=== PATIENT | male | born 1995 | race Hispanic/Latino ===

== ENCOUNTER 2017-04-29 03:01 | Emergency (ER) | payer BC ==
[2017-04-29 03:07] VITALS: BP 132/73; PULSE 59; RESP 14; TEMP 98; O2SAT 97
[2017-04-29] MEDS ORDERED: Alum-Mag Hydrox-Simethicone Susp (30 mL) PO STA (03:16)
--- NOTE | 2017-04-29 03:17 | ED PDOC ---
HPI: Abdomen Time Seen by Provider: 04/29/17 03:06 Chief Complaint (Nursing): Abdominal Pain Chief Complaint (Provider): Abdominal Pain History Per: Patient Additional Complaint(s): 21 yo male, no PMH, presents to ED for evaluation of acute epigastric abdominal pain that started 52 minutes ago after eating hummus. Past Medical History Reviewed: Nursing Documentation, Vital Signs Vital Signs: Last Vital Signs Temp 98 F 04/29/17 03:03 Pulse 59 L 04/29/17 03:03 Resp 14 04/29/17 03:03 BP 132/73 04/29/17 03:03 Pulse Ox 97 04/29/17 03:17 - Medical History PMH: Asthma - Surgical History Surgical History: No Surg Hx - Family History Family History: States: No Known Family Hx - Living Arrangements Living Arrangements: With Friends/Others - Social History Current smoker - smoking cessation education provided: No Alcohol: Social Drugs: Denies - Home Medications Home Medications: Ambulatory Orders Medication Instructions Recorded Famotidine [Pepcid] 20 mg PO DAILY #20 tab 04/29/17 - Allergies Allergies/Adverse Reactions: Allergies Allergy/AdvReac Type Severity Reaction Status Date / Time nut - unspecified Allergy RASH Verified 04/29/17 03:08 Review of Systems ROS Statement: Except As Marked, All Systems Reviewed And Found Negative Gastrointestinal: Positive for: Abdominal Pain Physical Exam - Reviewed Nursing Documentation Reviewed: Yes Vital Signs Reviewed: Yes - Physical Exam Appears: Positive for: Well, Non-toxic, No Acute Distress Head Exam: Positive for: ATRAUMATIC, NORMAL INSPECTION, NORMOCEPHALIC Skin: Positive for: Normal Color, Warm, DRY Eye Exam: Positive for: EOMI, Normal appearance, PERRL ENT: Positive for: Normal ENT Inspection Neck: Positive for: Normal, Painless ROM Cardiovascular/Chest: Positive for: Regular Rate, Rhythm Respiratory: Positive for: CNT, Normal Breath Sounds Gastrointestinal/Abdominal: Positive for: Bowel Sounds, Soft, Tenderness ( epigastric) Back: Positive for: Normal Inspection Extremity: Positive for: Normal ROM Neurologic/Psych: Positive for: Alert, Oriented - Laboratory Results Result Diagrams: 04/29/17 03:21 04/29/17 03:21 - ECG O2 Sat by Pulse Oximetry: 97 Medical Decision Making Medical Decision Making: IV access established and treatment initiated with Pepcid, Zofran and GI cocktail Diagnostics ordered Labs resulted and reviewed with Pt who demonstrated full understanding Pt doing well on re-eval. no complaints of pain or nausea. abdomen soft, non tender and non distended Disposition - Clinical Impression Clinical Impression: Gastritis - Patient ED Disposition Is Patient to be Admitted: No - Disposition Disposition: Routine/Home Disposition Time: 04:09 Condition: STABLE Prescriptions: Famotidine [Pepcid] 20 mg PO DAILY #20 tab Instructions: Gastritis (ED) Forms: [employer] (Japanese)
[2017-04-29] MEDS ORDERED: Alum-Mag Hydrox-Simethicone Susp (30 mL) ONE (03:22)
[2017-04-29 03:24] LABS: BASO # 0.1 K/uL (0.0-0.2); BASO % 0.8 % (0.0-2.0); EOS # 0.3 K/uL (0.0-0.7); HEMATOCRIT 41.6 % (35.0-51.0); LYMPH # 2.8 K/uL (1.0-4.3); LYMPH % 44.7 % (20.0-40.0); MEAN CELL VOLUME 89.9 fl (80.0-94.0); MEAN CORPUSCULAR HEMOGLOBIN 30.8 pg (27.0-31.0); MEAN CORPUSCULAR HGB CONC 34.3 g/dL (33.0-37.0); MEAN PLATELET VOLUME 6.6 fl (7.2-11.7); MONO # 0.5 K/uL (0.0-0.8); MONO % 8.3 % (0.0-10.0); NEUT # 2.6 K/uL (1.8-7.0); NEUT % 41.2 % (50.0-75.0); NRBC % 0.1 % (0.0-0.0); RED CELL DISTRIBUTION WIDTH 13.6 % (11.5-14.5); WHITE BLOOD COUNT 6.3 K/uL (4.8-10.8)
[2017-04-29 03:33] LABS: ALB/GLOB RATIO 1.4 (1.0-2.1); ALKALINE PHOSPHATASE 65 U/L (38-126); ALT/SGPT 60 U/L (21-72); AMYLASE 74 U/L (30-110); AST/SGOT 59 U/L (17-59); BILIRUBIN,TOTAL 0.7 mg/dl (0.2-1.3); BLOOD UREA NITROGEN 30 mg/dl (9-20); CALCIUM 9.2 mg/dL (8.4-10.2); CARBON DIOXIDE 23 mmol/L (22-30); CHLORIDE 104 mmol/L (98-107); GFR AFRICAN-AMERICAN > 60; GLUCOSE,RANDOM 81 mg/dL (75-110); LIPASE 69 U/L (23-300); POTASSIUM 3.7 MMOL/L (3.6-5.0); SODIUM 142 mmol/l (132-148)
[2017-04-29 03:48] LABS: RBC URINE 2 /hpf (0-3); URINE BILIRUBIN NEGATIVE (NEGATIVE); URINE BLOOD NEGATIVE (NEGATIVE); URINE COLOR YELLOW (YELLOW); URINE GLUCOSE (UA) NEG (Normal); URINE KETONE NEGATIVE (NEGATIVE); URINE LEUKOCYTE ESTERASE NEG Leu/uL (Negative); URINE PROTEIN NEGATIVE (NEGATIVE); URINE UROBILINOGEN 0.2-1.0 mg/dL (0.2-1.0); WBC URINE 2 /hpf (0-5)
== END 2017-04-29 04:18 | disposition home or self-care (01) ==
LOC: H.ER 03:01
DX: K29.70 Gastritis, unspecified, without bleeding (principal)
CPT/HCPCS: 80053; 81003; 82150; 83690; 85025; 96374; 96375; 99282; J2405